=== PATIENT | female | born 1985 | race Caucasian/White ===

== ENCOUNTER → 2022-07-01 | Day surgery (SDC) | payer OTHER ==
[2022-06-27 08:13] VITALS: BMI 39.1
[~2022-07-01] MED LIST: ACETAMINOPHEN INJECTION 100 ML IVPB ONE; BUPIVACAINE HCL/PF 0.25% (2.5MG/ML) 10 ML VIAL IJ ONE; BUPIVACAINE HCL/PF 0.25% (2.5MG/ML) 10 ML VIAL ONE; DEXMEDETOMIDINE HCL 200 MCG/2 ML IVPB ONE; MIDAZOLAM HCL 2 MG/2 ML SINGLE DOSE VIAL ONE; ONDANSETRON 4 MG/2 ML VIAL IVPUSH PRN; ONDANSETRON 4 MG/2 ML VIAL ONE; PROPOFOL 40 ML ONE; SUCCINYLCHOLINE CHLORIDE 200 MG/10 ML SYRINGE ONE; ceFAZolin SODIUM 1 GM VIAL IVPB ONE; oxyCODONE HCL 5 MG TABLET ONE; oxyCODONE HCL 5 MG TABLET PO PRN
[2022-07-01 13:52] VITALS: RESP 18
[2022-07-01 16:20] VITALS: BP 107/66; PULSE 80; TEMP 97.5
== END | disposition home or self-care (01) ==
LOC: JASU-SURG 04:21
PROVIDERS: ATTEND Surgery
PROC: 0FT44ZZ Resection of Gallbladder, Percutaneous Endoscopic Approach (ICD-10-PCS; principal; 2022-07-01 09:30)
DX: K80.20 Calculus of gallbladder without cholecystitis without obstruction (principal)
CPT/HCPCS: 81025; 88304-TC; 94760